=== PATIENT | female | born 2000 | race Caucasian/White ===

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

== ENCOUNTER 2022-04-16 14:40 | Emergency (ER) | payer MEDICAID ==
[~2022-04-16] VITALS: Ht 160 cm; Wt 82.0 kg
[2022-04-16 14:53] VITALS: BP 133/90
[2022-04-16] MEDS ORDERED: FLUT16SP2 BOTHNARES (15:14)
[2022-04-16] MEDS ORDERED: CETI10TA15 PO (15:14)
[2022-04-16] MEDS ORDERED: AMOX-117 PO (15:14)
== END 2022-04-16 15:30 | disposition home or self-care (01) ==
LOC: ER 14:42
DX: J06.9 Acute upper respiratory infection, unspecified (principal); R42 Dizziness and giddiness
CPT/HCPCS: 99283